=== PATIENT | female | born 1975 | race American Indian/Alaskan Native ===

== ENCOUNTER 2017-02-09 07:31 | Outpatient (CLI) | payer BC ==
[2017-02-09] MEDS ORDERED: WATER FOR INJ (PF) IV SCH (09:00)
[2017-02-09] MEDS ORDERED: KINEVAC IV ONE (09:30)
--- NOTE | 2017-02-09 12:08 | Nuclear Medicine Report ---
HEPATOBILIARY SCAN: History: Abdominal pain. Findings: Following the injection of the radionuclide, serial scanning was obtained over the right upper quadrant. Initial imaging of the liver demonstrates a relatively normal activity pattern. Progressive concentration of the radionuclide in the bile ducts, with filling of both the gallbladder and small bowel, is identified within a normal time period. IMPRESSION: No cystic or common bile duct obstruction. Post Kinevac gallbladder ejection fraction 86%.
== END 2017-02-09 07:32 | disposition home or self-care (01) ==
LOC: NM 07:31
PROVIDERS: ATTEND Internal Medicine Geriatric Medicine
DX: R10.9 Unspecified abdominal pain (principal)
CPT/HCPCS: 78227; A9537; J2805